=== PATIENT | female | born 1955 | race Caucasian/White ===

== ENCOUNTER 2017-11-18 15:29 | Emergency (ER) | payer OTHER ==
[~2017-11-18] VITALS: Ht 172.7 cm; Wt 63.4 kg
[2017-11-18 16:43] LABS: HEMATOCRIT 40.7 % (36.0-46.0); HEMOGLOBIN 14.3 G/DL (11.9-15.5); MCH 33.6 PG (29.0-34.0); MCHC 35.1 G/DL (30.0-36.0); MCV 95.5 FL (83-99); PLATELET COUNT 227 K/uL (156-360); RBC DIS.WIDTH-CV 12.4 % (11.8-14.6); RBC DIS.WIDTH-SD 43.7 % (39-53); RED BLOOD COUNT 4.26 M/uL (3.80-5.20); WHITE BLOOD COUNT 4.5 K/uL (4.1-10.2)
[2017-11-18 16:48] LABS: APPEARANCE CLEAR ((CLEAR)); BILIRUBIN NEGATIVE; BLOOD SMALL; COLOR STRAW ((YELLOW)); GLUCOSE (STRIP) NEGATIVE; KETONES NEGATIVE; LEUKOCYTES TRACE; NITRITE NEGATIVE; PROTEIN (STRIP) NEGATIVE; SPECIFIC GRAVITY 1.003 (1.000-1.030); UROBILINOGEN 0.2 MG/DL (0.2-1.0)
[2017-11-18 16:53] LABS: ALBUMIN 4.2 g/dL (3.2-4.8)
[2017-11-18 16:54] LABS: CHLORIDE 107 mEq/L (99-109); POTASSIUM 3.6 mEq/L (3.7-5.4); SODIUM 140 mEq/L (136-147)
[2017-11-18 16:54] LABS: BACTERIA NONE SEEN /HPF; EPITHELIAL CELLS RARE /HPF; MUCUS NONE SEEN /LPF; RED BLOOD CELLS NONE SEEN /HPF (0-5); UCUL ADDED? NO; WHITE BLOOD CELLS 0-5 /HPF (0-5)
[2017-11-18 16:56] LABS: GLUCOSE 105 mg/dL (70-99); TOTAL PROTEIN 6.8 g/dL (6.4-8.3)
[2017-11-18 16:58] LABS: TOTAL BILIRUBIN 0.5 mg/dL (0.0-1.0)
[2017-11-18 16:59] LABS: ALKALINE PHOSPHATASE 84 IU/L (3-129)
[2017-11-18 17:00] LABS: CREATININE 0.8 mg/dL (0.6-1.3); GFR ESTIMATE (CALCULATED) > 59 mL/min/
[2017-11-18 17:01] LABS: AST (GOT) 18 IU/L (2-34); UREA NITROGEN (BUN) 8 mg/dL (9-23)
[2017-11-18 17:03] LABS: ALT (GPT) 10 IU/L (3-49); LIPASE 10 U/L (1.0-51.0)
[2017-11-18] MEDS ORDERED: BENTYL20 MG PO (18:13)
[2017-11-18 18:40] VITALS: BP 138/81
== END 2017-11-18 18:42 | disposition home or self-care (01) ==
LOC: EME 15:29
PROVIDERS: Nurse Practitioner Family
DX: R19.7 Diarrhea, unspecified (principal); R10.9 Unspecified abdominal pain
CPT/HCPCS: 76705; 80053; 81003; 83690; 85027; 99281; 99284